=== PATIENT | female | born 1970 | race Caucasian/White ===

== ENCOUNTER 2016-04-17 14:06 | Observation (INO) | payer OTHER ==
[~2016-04-17] VITALS: Ht 157.5 cm; Wt 68.0 kg
[~2016-04-17 14:06] MED LIST: AMLODIPINE BESY10 MG PO; LANTUS 10100 UNITS/ SC; NOVOLOG 10100 UNITS/ SC
[2016-04-17 14:26] LABS: POINT-OF-CARE METER ID UU13113778
[2016-04-17 15:40] LABS: HEMATOCRIT 33.5 % (36.0-46.0); MCH 22.8 PG (29.0-34.0); MCHC 30.1 G/DL (30.0-36.0); MCV 75.6 FL (83-99); MEAN PLAT.VOLUME 10.2 uM^3 (9.5-12.4); PLATELET COUNT 408 K/uL (156-360); RBC DIS.WIDTH-CV 16.6 % (11.8-14.6); RBC DIS.WIDTH-SD 43.8 % (39-53); RED BLOOD COUNT 4.43 M/uL (3.80-5.20); WHITE BLOOD COUNT 8.6 K/uL (4.1-10.2)
[2016-04-17 15:51] LABS: CHLORIDE 112 mEq/L (99-109); POTASSIUM 4.9 mEq/L (3.7-5.4); SODIUM 143 mEq/L (136-147)
[2016-04-17 15:52] LABS: GLUCOSE 68 mg/dL (70-99)
[2016-04-17 15:54] LABS: ANION GAP 9 MEQ/L (2-14)
[2016-04-17 15:56] LABS: GFR ESTIMATE (CALCULATED) 15 mL/min/
[2016-04-17 15:57] LABS: UREA NITROGEN (BUN) 45 mg/dL (9-23)
[2016-04-17 16:02] LABS: TROP-I INTERPRETATION NEGATIVE; TROPONIN-I < 0.01 ng/mL (0.0-0.30)
[2016-04-17] MEDS ORDERED: VITAMIN C GUMMY PO (16:48)
[2016-04-17 17:02] LABS: MAGNESIUM 2.7 mg/dL (1.3-2.7)
[2016-04-17 20:49] LABS: TROP-I INTERPRETATION NEGATIVE; TROPONIN-I 0.01 ng/mL (0.0-0.30)
[2016-04-17 22:45] LABS: POINT-OF-CARE METER ID UU13113800
[2016-04-17 23:08] LABS: ADD MIUA? YES; BILIRUBIN NEGATIVE; BLOOD TRACE; COLOR YELLOW ((YELLOW)); GLUCOSE (STRIP) 100; KETONES NEGATIVE; LEUKOCYTES NEGATIVE; NITRITE NEGATIVE; PH, URINE 6.5 (5-8); PROTEIN (STRIP) >=300; SPECIFIC GRAVITY 1.013 (1.000-1.030); UROBILINOGEN 0.2 MG/DL (0.2-1.0)
[2016-04-17 23:23] LABS: BACTERIA NONE SEEN; CASTS NONE SEEN /LPF; CRYSTALS NONE SEEN; EPITHELIAL CELLS 1+; MUCUS NONE SEEN; RED BLOOD CELLS RARE /HPF (0-5); WHITE BLOOD CELLS RARE /HPF (0-5)
[2016-04-18 02:24] VITALS: BP 163/77
[2016-04-18 02:42] LABS: TROP-I INTERPRETATION NEGATIVE; TROPONIN-I < 0.01 ng/mL (0.0-0.30)
[2016-04-18] MEDS ORDERED: HYDROCHLOROTH12.5 M3 PO (07:36)
[2016-04-18 08:06] VITALS: BP 165/81
[2016-04-18 08:49] LABS: POINT-OF-CARE METER ID UU14162513
[2016-04-18 12:09] VITALS: BP 185/81
[2016-04-18 12:50] LABS: POINT-OF-CARE METER ID UU14162513
== END 2016-04-18 13:57 | disposition home or self-care (01) ==
LOC: EME 14:06 → RME 14:06 → EDOF 19:13 → 5WEST 19:13
PROVIDERS: Internal Medicine; Physician Assistant
DX: R07.9 Chest pain, unspecified (principal); I16.0 Hypertensive urgency; R51 Headache; R29.6 Repeated falls; E11.40 Type 2 diabetes mellitus with diabetic neuropathy, unspecified; R94.02 Abnormal brain scan; Z86.011 Personal history of benign neoplasm of the brain; E87.5 Hyperkalemia; Z79.4 Long term (current) use of insulin; R42 Dizziness and giddiness; Z91.128 Patient's intentional underdosing of medication regimen for other reason; T46.5X6A Underdosing of other antihypertensive drugs, initial encounter; M79.89 Other specified soft tissue disorders; Z82.49 Family history of ischemic heart disease and other diseases of the circulatory system; Z81.4 Family history of other substance abuse and dependence
CPT/HCPCS: 70450; 71020; 80048; 81003; 82948; 83735; 84439; 84443; 84484; 85027; 93005; 99281; 99285; G0378; J1650; J1815; J7030

== ENCOUNTER 2016-06-19 10:33 | Observation (INO) | payer OTHER ==
[~2016-06-19] VITALS: Ht 157.5 cm; Wt 69.4 kg
[~2016-06-19 10:33] MED LIST changes: +HYDROCHLOROTH12.5 M3 PO; +VITAMIN C GUMMY PO
[2016-06-19 11:04] LABS: EOSINOPHIL (%) 1.1 % (0-5); EOSINOPHIL COUNT 0.1 K/uL (0-0.3); HEMATOCRIT 32.5 % (36.0-46.0); IMMATURE GRANULOCYTE (%) 0.4 % (0.0-0.7); INSTRUMENT ABS NEUTROPHIL CT 5.7 K/uL; LYMPHOCYTE COUNT 1.3 K/uL (1.0-2.8); MCH 22.5 PG (29.0-34.0); MCHC 28.9 G/DL (30.0-36.0); MCV 77.9 FL (83-99); MEAN PLAT.VOLUME 10.7 uM^3 (9.5-12.4); MONOCYTE COUNT 0.5 K/uL (0-0.8); NEUTROPHIL (%) 75.7 % (45-76); NEUTROPHIL COUNT 5.7 K/uL (1.8-6.4); PLATELET COUNT 319 K/uL (156-360); RBC DIS.WIDTH-CV 16.9 % (11.8-14.6); RBC DIS.WIDTH-SD 47.9 % (39-53); RED BLOOD COUNT 4.17 M/uL (3.80-5.20); WHITE BLOOD COUNT 7.5 K/uL (4.1-10.2)
[2016-06-19 11:17] LABS: CHLORIDE 111 mEq/L (99-109); POTASSIUM 5.2 mEq/L (3.7-5.4); SODIUM 140 mEq/L (136-147)
[2016-06-19 11:18] LABS: GLUCOSE 326 mg/dL (70-99)
[2016-06-19 11:20] LABS: ANION GAP 9 MEQ/L (2-14)
[2016-06-19 11:22] LABS: GFR ESTIMATE (CALCULATED) 14 mL/min/
[2016-06-19 11:23] LABS: UREA NITROGEN (BUN) 52 mg/dL (9-23)
[2016-06-19 11:25] LABS: TROP-I INTERPRETATION NEGATIVE; TROPONIN-I 0.06 ng/mL (0.0-0.30)
[2016-06-19 15:49] LABS: HDL CHOLESTEROL 46 MG/DL (Desirable>=50); LDL CHOLESTEROL 86 mg/dL (Desirable<100); NON-HDL CHOLESTEROL 106 mg/dL (Desirable<160); TOTAL CHOLESTEROL 152 mg/dL (Desirable<200); TRIGLYCERIDES 98 MG/DL (Normal: <150)
[2016-06-19 16:34] VITALS: BP 174/79
[2016-06-19 17:00] LABS: POINT-OF-CARE METER ID UU13113831
[2016-06-19 17:14] LABS: Estimated Average Glucose 163 mg/dL (70-123); HEMOGLOBIN A1c (GLYCOHEMOGLOB) 7.3 % HGB (Below 5.7)
[2016-06-19 18:00] LABS: TROP-I INTERPRETATION NEGATIVE; TROPONIN-I 0.22 ng/mL (0.0-0.30)
[2016-06-19 20:00] VITALS: BP 166/81
[2016-06-19 21:38] LABS: POINT-OF-CARE METER ID UU13113831
[2016-06-19 23:43] LABS: TROP-I INTERPRETATION NEGATIVE; TROPONIN-I 0.17 ng/mL (0.0-0.30)
[2016-06-20 00:13] VITALS: BP 152/76
[2016-06-20 03:46] VITALS: BP 135/63
[2016-06-20 07:41] LABS: ANION GAP 7 MEQ/L (2-14); CHLORIDE 112 MEQ/L (99-109); GFR ESTIMATE (CALCULATED) 15 mL/min/; IRON 26 MCG/DL (35-150); POTASSIUM 4.7 MEQ/L (3.7-5.4); SAMPLE HEMOLYSIS CHECK 0; SAMPLE ICTERIC CHECK 0; SAMPLE LIPEMIA CHECK 0; SODIUM 141 MEQ/L (136-147); UREA NITROGEN (BUN) 52 mg/dL (9-23)
[2016-06-20 07:42] LABS: GLUCOSE 78 mg/dL (70-99)
[2016-06-20 07:57] VITALS: BP 144/71
[2016-06-20 08:35] LABS: FERRITIN 5 NG/ML (10-291)
[2016-06-20 08:38] LABS: POINT-OF-CARE METER ID UU13113831
[2016-06-20 09:13] LABS: ADD MIUA? YES; BILIRUBIN NEGATIVE; BLOOD NEGATIVE; COLOR STRAW ((YELLOW)); GLUCOSE (STRIP) 50; KETONES NEGATIVE; LEUKOCYTES NEGATIVE; NITRITE NEGATIVE; PROTEIN (STRIP) 100; SPECIFIC GRAVITY 1.009 (1.000-1.030); UROBILINOGEN 0.2 MG/DL (0.2-1.0)
[2016-06-20 09:47] LABS: BACTERIA RARE /HPF; EPITHELIAL CELLS 1+ /HPF; MUCUS NONE SEEN /LPF; RED BLOOD CELLS 0-5 /HPF (0-5)
[2016-06-20 10:09] LABS: D-DIMER ELISA 0.26 mg/L FEU (< 0.57)
[2016-06-20] MEDS ORDERED: ASPIR-LOW81 MG PO (10:18)
[2016-06-20] MEDS ORDERED: ATORVASTATIN CA40 MG PO (10:18)
[2016-06-20] MEDS ORDERED: NITROSTAT0.4 MG SL (10:18)
[2016-06-20] MEDS ORDERED: CARDIZEM CD120 MG PO (10:18)
== END 2016-06-20 11:19 | disposition home or self-care (01) ==
LOC: EME 10:33 → EDOF 14:46 → 5WEST 14:46
PROVIDERS: Emergency Medicine; Hospitalist; Internal Medicine; Physician Assistant Medical
DX: R07.89 Other chest pain (principal); I47.1 Supraventricular tachycardia; E11.43 Type 2 diabetes mellitus with diabetic autonomic (poly)neuropathy; E11.22 Type 2 diabetes mellitus with diabetic chronic kidney disease; I12.9 Hypertensive chronic kidney disease with stage 1 through stage 4 chronic kidney disease, or unspecified chronic kidney disease; N18.4 Chronic kidney disease, stage 4 (severe); D64.9 Anemia, unspecified; Z79.4 Long term (current) use of insulin
CPT/HCPCS: 71010; 80048; 80061; 81003; 82607; 82728; 82746; 82948; 83036; 83540; 84443; 84466; 84484; 85025; 85379; 93005; 93306; 99281; 99285; G0378; J0153; J1815

== ENCOUNTER 2016-07-15 20:33 | Observation (INO) | payer OTHER ==
[~2016-07-15] VITALS: Ht 157.5 cm; Wt 68.3 kg
[~2016-07-15 20:33] MED LIST changes: +ASPIR-LOW81 MG PO; +ATORVASTATIN CA40 MG PO; +CARDIZEM CD120 MG PO; +NITROSTAT0.4 MG SL
[2016-07-15 21:00] LABS: HEMATOCRIT 31.2 % (36.0-46.0); MCH 22.1 PG (29.0-34.0); MCHC 29.5 G/DL (30.0-36.0); MEAN PLAT.VOLUME 10.6 uM^3 (9.5-12.4); PLATELET COUNT 375 K/uL (156-360); RBC DIS.WIDTH-SD 45.3 % (39-53); RED BLOOD COUNT 4.16 M/uL (3.80-5.20); WHITE BLOOD COUNT 8.8 K/uL (4.1-10.2)
[2016-07-15 21:11] LABS: CHLORIDE 112 mEq/L (99-109); POTASSIUM 4.7 mEq/L (3.7-5.4); SODIUM 143 mEq/L (136-147)
[2016-07-15 21:12] LABS: GLUCOSE 109 mg/dL (70-99)
[2016-07-15 21:14] LABS: ANION GAP 10 MEQ/L (2-14)
[2016-07-15 21:16] LABS: GFR ESTIMATE (CALCULATED) 13 mL/min/
[2016-07-15 21:17] LABS: UREA NITROGEN (BUN) 49 mg/dL (9-23)
[2016-07-15 21:20] LABS: TROP-I INTERPRETATION NEGATIVE; TROPONIN-I 0.02 ng/mL (0.0-0.30)
[2016-07-15] MEDS ORDERED: LO-DOSE ASPIRIN81 M2 PO (22:05)
[2016-07-16 00:04] VITALS: BP 155/72
[2016-07-16 00:04] LABS: D-DIMER ELISA 0.28 mg/L FEU (< 0.57)
[2016-07-16 00:33] LABS: POINT-OF-CARE METER ID UU14162513
[2016-07-16 04:03] VITALS: BP 163/87
[2016-07-16 06:19] LABS: HEMATOCRIT 28.5 % (36.0-46.0); MCHC 28.4 G/DL (30.0-36.0); MCV 77.2 FL (83-99); MEAN PLAT.VOLUME 11.1 uM^3 (9.5-12.4); PLATELET COUNT 269 K/uL (156-360); RBC DIS.WIDTH-CV 17.1 % (11.8-14.6); RBC DIS.WIDTH-SD 47.4 % (39-53); RED BLOOD COUNT 3.69 M/uL (3.80-5.20); WHITE BLOOD COUNT 8.1 K/uL (4.1-10.2)
[2016-07-16 06:42] LABS: ANION GAP 7 MEQ/L (2-14); CHLORIDE 114 MEQ/L (99-109); GFR ESTIMATE (CALCULATED) 13 mL/min/; GLUCOSE 95 mg/dL (70-99); POTASSIUM 4.7 MEQ/L (3.7-5.4); SAMPLE HEMOLYSIS CHECK 0; SAMPLE ICTERIC CHECK 0; SAMPLE LIPEMIA CHECK 0; SODIUM 143 MEQ/L (136-147); UREA NITROGEN (BUN) 47 mg/dL (9-23)
[2016-07-16 06:56] LABS: TROP-I INTERPRETATION NEGATIVE; TROPONIN-I 0.03 ng/mL (0.0-0.30)
[2016-07-16 11:59] LABS: HEMATOCRIT 29.9 % (36.0-46.0); MCH 21.9 PG (29.0-34.0); MCHC 28.4 G/DL (30.0-36.0); MCV 77.1 FL (83-99); MEAN PLAT.VOLUME 10.9 uM^3 (9.5-12.4); PLATELET COUNT 301 K/uL (156-360); RBC DIS.WIDTH-CV 17.2 % (11.8-14.6); RBC DIS.WIDTH-SD 47.7 % (39-53); RED BLOOD COUNT 3.88 M/uL (3.80-5.20); WHITE BLOOD COUNT 6.8 K/uL (4.1-10.2)
[2016-07-16 12:13] LABS: POINT-OF-CARE METER ID UU14162513
[2016-07-16 12:24] LABS: ANION GAP 8 MEQ/L (2-14); CHLORIDE 111 MEQ/L (99-109); GFR ESTIMATE (CALCULATED) 15 mL/min/; POTASSIUM 5.1 MEQ/L (3.7-5.4); SAMPLE HEMOLYSIS CHECK 0; SAMPLE ICTERIC CHECK 0; SAMPLE LIPEMIA CHECK 0; SODIUM 143 MEQ/L (136-147); UREA NITROGEN (BUN) 44 mg/dL (9-23)
[2016-07-16 12:30] LABS: TROP-I INTERPRETATION NEGATIVE; TROPONIN-I 0.03 ng/mL (0.0-0.30)
[2016-07-16 12:31] LABS: GLUCOSE 155 mg/dL (70-99)
== END 2016-07-16 13:14 | disposition home or self-care (01) ==
LOC: EME → EDBD 20:33 → EDOF 23:09 → 5WEST 23:09 → EDOF 23:09 → 5WEST 23:58
PROVIDERS: Hospitalist
DX: R07.89 Other chest pain (principal); I12.9 Hypertensive chronic kidney disease with stage 1 through stage 4 chronic kidney disease, or unspecified chronic kidney disease; N18.3 Chronic kidney disease, stage 3 (moderate); E11.22 Type 2 diabetes mellitus with diabetic chronic kidney disease; E78.00 Pure hypercholesterolemia, unspecified; E11.40 Type 2 diabetes mellitus with diabetic neuropathy, unspecified; E78.5 Hyperlipidemia, unspecified; Z79.4 Long term (current) use of insulin
CPT/HCPCS: 71020; 80048; 80048 91; 82272; 82948; 84484; 85027; 85379; 93005; 99281; 99284; G0378; J1650; J1815; J2270

== ENCOUNTER 2016-07-24 21:18 | Emergency (ER) | payer OTHER ==
[~2016-07-24] VITALS: Ht 157.5 cm; Wt 66.1 kg
[~2016-07-24 21:18] MED LIST changes: +LO-DOSE ASPIRIN81 M2 PO
[2016-07-24 22:09] LABS: MCH 22.1 PG (29.0-34.0); MCHC 28.7 G/DL (30.0-36.0); MCV 76.9 FL (83-99); MEAN PLAT.VOLUME 11.6 uM^3 (9.5-12.4); PLATELET COUNT 328 K/uL (156-360); RBC DIS.WIDTH-CV 17.3 % (11.8-14.6); RBC DIS.WIDTH-SD 48.2 % (39-53); RED BLOOD COUNT 4.03 M/uL (3.80-5.20); WHITE BLOOD COUNT 7.2 K/uL (4.1-10.2)
[2016-07-24 22:13] LABS: CHLORIDE 110 mEq/L (99-109); POTASSIUM 4.9 mEq/L (3.7-5.4); SODIUM 140 mEq/L (136-147)
[2016-07-24 22:15] LABS: GLUCOSE 297 mg/dL (70-99)
[2016-07-24 22:16] LABS: ANION GAP 10 MEQ/L (2-14)
[2016-07-24 22:17] LABS: TOTAL BILIRUBIN 0.3 mg/dL (0.0-1.0)
[2016-07-24 22:18] LABS: ALKALINE PHOSPHATASE 98 IU/L (3-129)
[2016-07-24 22:19] LABS: GFR ESTIMATE (CALCULATED) 15 mL/min/
[2016-07-24 22:20] LABS: DIRECT BILIRUBIN 0.1 mg/dL (0.0-0.3); UREA NITROGEN (BUN) 32 mg/dL (9-23)
[2016-07-24 22:22] LABS: LIPASE 55 U/L (1.0-51.0)
[2016-07-24 22:25] LABS: TROP-I INTERPRETATION NEGATIVE; TROPONIN-I < 0.01 ng/mL (0.0-0.30)
[2016-07-24 23:48] LABS: ADD MIUA? YES; BILIRUBIN NEGATIVE; BLOOD LARGE; COLOR YELLOW ((YELLOW)); GLUCOSE (STRIP) >=500; KETONES NEGATIVE; LEUKOCYTES NEGATIVE; NITRITE NEGATIVE; PROTEIN (STRIP) 100; SPECIFIC GRAVITY 1.007 (1.000-1.030); UROBILINOGEN 0.2 MG/DL (0.2-1.0)
[2016-07-25 00:08] LABS: BACTERIA NONE SEEN /HPF; EPITHELIAL CELLS RARE /HPF; HYALINE CASTS 0-5 /LPF; MUCUS NONE SEEN /LPF; RED BLOOD CELLS TNTC /HPF (0-5); UCUL ADDED? NO; WHITE BLOOD CELLS 0-5 /HPF (0-5)
[2016-07-25 01:38] LABS: TROP-I INTERPRETATION NEGATIVE; TROPONIN-I < 0.01 ng/mL (0.0-0.30)
[2016-07-25] MEDS ORDERED: CARAFATE1 GM PO (03:12)
[2016-07-25 03:45] VITALS: BP 126/68
== END 2016-07-25 03:59 | disposition home or self-care (01) ==
LOC: EME → EDBD 21:18 → EME 07-25 03:59
PROVIDERS: Emergency Medicine
DX: R07.9 Chest pain, unspecified (principal); K80.70 Calculus of gallbladder and bile duct without cholecystitis without obstruction; E11.65 Type 2 diabetes mellitus with hyperglycemia; E11.22 Type 2 diabetes mellitus with diabetic chronic kidney disease; I12.9 Hypertensive chronic kidney disease with stage 1 through stage 4 chronic kidney disease, or unspecified chronic kidney disease; N18.9 Chronic kidney disease, unspecified; D64.9 Anemia, unspecified; Z79.4 Long term (current) use of insulin; Z79.82 Long term (current) use of aspirin
CPT/HCPCS: 71020; 74176; 80048; 80076; 81003; 83690; 84484; 85027; 85379; 93005; 99281; 99284

== ENCOUNTER 2016-07-31 21:04 | Emergency (ER) | payer OTHER ==
[~2016-07-31] VITALS: Ht 157.5 cm; Wt 65.3 kg
[~2016-07-31 21:04] MED LIST changes: +CARAFATE1 GM PO
[2016-07-31 21:29] LABS: HEMATOCRIT 31.7 % (36.0-46.0); MCH 22.5 PG (29.0-34.0); MCV 77.7 FL (83-99); MEAN PLAT.VOLUME 10.2 uM^3 (9.5-12.4); PLATELET COUNT 317 K/uL (156-360); RBC DIS.WIDTH-CV 17.9 % (11.8-14.6); RBC DIS.WIDTH-SD 50.2 % (39-53); RED BLOOD COUNT 4.08 M/uL (3.80-5.20)
[2016-07-31 21:29] LABS: ADD MIUA? YES; BILIRUBIN NEGATIVE; BLOOD SMALL; COLOR YELLOW ((YELLOW)); GLUCOSE (STRIP) >=500; KETONES NEGATIVE; LEUKOCYTES NEGATIVE; NITRITE NEGATIVE; PROTEIN (STRIP) >=500; SPECIFIC GRAVITY 1.009 (1.000-1.030); UROBILINOGEN 0.2 MG/DL (0.2-1.0)
[2016-07-31 21:39] LABS: BACTERIA NONE SEEN /HPF; EPITHELIAL CELLS 1+ /HPF; MUCUS TRACE /LPF; RED BLOOD CELLS 0-5 /HPF (0-5); UCUL ADDED? NO
[2016-07-31 21:40] LABS: CHLORIDE 112 mEq/L (99-109); POTASSIUM 4.7 mEq/L (3.7-5.4); SODIUM 142 mEq/L (136-147)
[2016-07-31 21:42] LABS: GLUCOSE 188 mg/dL (70-99)
[2016-07-31 21:43] LABS: ANION GAP 7 MEQ/L (2-14)
[2016-07-31 21:46] LABS: ALKALINE PHOSPHATASE 104 IU/L (3-129); GFR ESTIMATE (CALCULATED) 16 mL/min/
[2016-07-31 21:47] LABS: UREA NITROGEN (BUN) 37 mg/dL (9-23)
[2016-07-31 21:48] LABS: TOTAL BILIRUBIN 0.5 mg/dL (0.0-1.0)
[2016-07-31 21:57] LABS: QUANTITATIVE HCG < 4.0 MIU/ML
[2016-07-31 23:53] VITALS: BP 188/84
== END 2016-07-31 23:53 | disposition home or self-care (01) ==
LOC: EME 21:04
DX: R31.9 Hematuria, unspecified (principal); K80.20 Calculus of gallbladder without cholecystitis without obstruction; E11.40 Type 2 diabetes mellitus with diabetic neuropathy, unspecified; I10 Essential (primary) hypertension; K21.9 Gastro-esophageal reflux disease without esophagitis; F32.9 Major depressive disorder, single episode, unspecified; Z91.19 Patient's noncompliance with other medical treatment and regimen; Z79.82 Long term (current) use of aspirin; Z79.4 Long term (current) use of insulin
CPT/HCPCS: 74176; 80053; 81003; 84702; 85027; 99281; 99285

== ENCOUNTER 2017-05-28 12:52 | Observation (INO) | payer OTHER ==
[~2017-05-28] VITALS: Ht 157.5 cm; Wt 71.4 kg
[2017-05-28 13:34] LABS: BASOPHIL (%) 0.3 % (0-1); EOSINOPHIL COUNT 0.5 K/uL (0-0.3); HEMOGLOBIN 10.4 G/DL (11.9-15.5); IMMATURE GRANULOCYTE (%) 0.8 % (0.0-0.7); LYMPHOCYTE (%) 22.6 % (15-42); MCH 29.1 PG (29.0-34.0); MCHC 31.5 G/DL (30.0-36.0); MCV 92.2 FL (83-99); MONOCYTE (%) 4.6 % (3-12); MONOCYTE COUNT 0.4 K/uL (0-0.8); NEUTROPHIL (%) 65.7 % (45-76); NEUTROPHIL COUNT 5.7 K/uL (1.8-6.4); PLATELET COUNT 273 K/uL (156-360); RBC DIS.WIDTH-SD 47.2 % (39-53); RED BLOOD COUNT 3.58 M/uL (3.80-5.20); WHITE BLOOD COUNT 8.7 K/uL (4.1-10.2)
[2017-05-28 13:42] LABS: ALBUMIN 3.6 g/dL (3.2-4.8); CHLORIDE 111 mEq/L (99-109); POTASSIUM 4.6 mEq/L (3.7-5.4); SODIUM 139 mEq/L (136-147)
[2017-05-28 13:43] LABS: MAGNESIUM 2.9 mg/dL (1.3-2.7)
[2017-05-28 13:45] LABS: GLUCOSE 238 mg/dL (70-99); TOTAL PROTEIN 6.9 g/dL (6.4-8.3)
[2017-05-28 13:47] LABS: TOTAL BILIRUBIN 0.4 mg/dL (0.0-1.0)
[2017-05-28 13:48] LABS: ALKALINE PHOSPHATASE 145 IU/L (3-129); PHOSPHORUS 6.1 mg/dL (2.5-4.9)
[2017-05-28 13:49] LABS: CREATININE 5.6 mg/dL (0.6-1.3); GFR ESTIMATE (CALCULATED) 9 mL/min/
[2017-05-28 13:50] LABS: AST (GOT) 17 IU/L (2-34); UREA NITROGEN (BUN) 59 mg/dL (9-23)
[2017-05-28 13:52] LABS: ALT (GPT) 19 IU/L (3-49)
[2017-05-28 13:54] LABS: TROP-I INTERPRETATION NEGATIVE; TROPONIN-I < 0.01 ng/mL (0.0-0.30)
[2017-05-28] MEDS ORDERED: NOVOLOG PE100 UNITS/ SC (14:20)
[2017-05-28] MEDS ORDERED: TOUJEO SOL300 UNIT/1 SC (14:22)
[2017-05-28] MEDS ORDERED: ATORVASTATIN CA10 MG PO (14:22)
[2017-05-28] MEDS ORDERED: LOPRESSOR50 MG PO (14:27)
[2017-05-28 16:40] VITALS: BP 193/86
[2017-05-28 20:00] VITALS: BP 150/82
[2017-05-28 20:30] LABS: TROP-I INTERPRETATION NEGATIVE; TROPONIN-I < 0.01 ng/mL (0.0-0.30)
[2017-05-29 00:01] VITALS: BP 126/70
[2017-05-29 03:01] LABS: TROP-I INTERPRETATION NEGATIVE; TROPONIN-I < 0.01 ng/mL (0.0-0.30)
[2017-05-29 04:14] VITALS: BP 132/75
[2017-05-29 05:52] LABS: HEMATOCRIT 30.6 % (36.0-46.0); HEMOGLOBIN 9.5 G/DL (11.9-15.5); MCH 28.7 PG (29.0-34.0); MCV 92.4 FL (83-99); NRBC (%) 0.2 /100 WBC (0-0); PLATELET COUNT 250 K/uL (156-360); RBC DIS.WIDTH-CV 14.2 % (11.8-14.6); RBC DIS.WIDTH-SD 47.8 % (39-53); RED BLOOD COUNT 3.31 M/uL (3.80-5.20); WHITE BLOOD COUNT 8.1 K/uL (4.1-10.2)
[2017-05-29 06:31] LABS: ALBUMIN 2.9 G/DL (3.2-4.8); CHLORIDE 115 MEQ/L (99-109); CREATININE 5.1 MG/DL (0.6-1.3); GFR ESTIMATE (CALCULATED) 10 mL/min/; GLUCOSE 127 mg/dL (70-99); PHOSPHORUS 6.8 mg/dL (2.5-4.9); POTASSIUM 4.7 MEQ/L (3.7-5.4); SODIUM 144 MEQ/L (136-147); UREA NITROGEN (BUN) 59 mg/dL (9-23)
[2017-05-29 09:46] LABS: HEMOGLOBIN A1c (GLYCOHEMOGLOB) 11.3 % (Below 5.7)
[2017-05-29] MEDS ORDERED: NIFEDIPINE ER30 MG PO (11:37)
[2017-05-29 11:44] LABS: HEPATITIS B SURFACE ANTIGEN Nonreactive; HEPATITIS C ANTIBODY Nonreactive
[2017-05-29 11:46] LABS: HEPATITIS B SURFACE ANTIBODY REACTIVE
[2017-05-29 11:48] LABS: ANTI-HEPATITIS B CORE (TOTAL) Nonreactive
[2017-05-29 16:21] VITALS: BP 116/66
== END 2017-05-29 17:27 | disposition home or self-care (01) ==
LOC: EME 12:52 → EDOF 15:19 → 5WEST 15:19 → EDOF 15:19 → 5WEST 15:19 → ENRESERV 15:36 → 5WEST 16:34
PROVIDERS: Emergency Medicine; Internal Medicine; Internal Medicine Nephrology; Physician Assistant Medical
PROC: 5A1D70Z Performance of Urinary Filtration, Intermittent, Less than 6 Hours Per Day (ICD-10-PCS; principal; 2017-05-29)
DX: R07.89 Other chest pain (principal); E87.2 Acidosis; I47.1 Supraventricular tachycardia; Z91.15 Patient's noncompliance with renal dialysis; E11.22 Type 2 diabetes mellitus with diabetic chronic kidney disease; I12.0 Hypertensive chronic kidney disease with stage 5 chronic kidney disease or end stage renal disease; N18.6 End stage renal disease; Z99.2 Dependence on renal dialysis; D63.1 Anemia in chronic kidney disease; E11.40 Type 2 diabetes mellitus with diabetic neuropathy, unspecified; E87.8 Other disorders of electrolyte and fluid balance, not elsewhere classified; E78.5 Hyperlipidemia, unspecified; Z86.011 Personal history of benign neoplasm of the brain; E66.3 Overweight; Z79.82 Long term (current) use of aspirin; Z79.4 Long term (current) use of insulin; Z84.1 Family history of disorders of kidney and ureter; Z82.49 Family history of ischemic heart disease and other diseases of the circulatory system
CPT/HCPCS: 71046; 71250; 80048; 80053; 80069; 82948; 83036; 83735; 84100; 84484; 85025; 85027; 86704; 86706; 86803; 87340; 93005; 99281; 99285; G0257; G0378; J1644; J1815; J2997